=== PATIENT | female | born 1935 | race Caucasian/White ===

== ENCOUNTER 2021-08-10 08:34 | Emergency (ER) | payer MEDICARE, SELFPAY ==
[2021-08-10] VITALS (10 sets, daily range): BP systolic 105–181; BP diastolic 57–96; PULSE 63–85; RESP 18; TEMP 36.6–36.7; O2SAT 96–99; BMI 24.5
--- NOTE | 2021-08-10 08:36 | XR_ITS ---
WS: [id number] Exam: XR chest 1V portable [id number] Date/Time of Exam: 08/10/2021 8:39 AM Reason For Exam: chest pain No priors. The lungs are fully expanded and clear. Normal cardiomediastinal silhouette. No pleural effusions. De xtroscoliosis of the lower T-spine. Bony structures are otherwise intact. XR/XR chest 1V portable [id number] IMPRESSION: 1. No acute cardiopulmonary finding.
--- NOTE | 2021-08-10 08:36 | ECG_ITS ---
[facility] Test Date: 2021-08-10 Pat Name: Laure Bergman Department: Room: Gender: Female Structural Architect: : 1935 Requested By: Elisa Zimmerman Order Number: [id number] Chasity MD: Michael Ray M.D. Measurements Intervals [place] Rate: 80 P: 79 MI: 169 QRS: 44 QRSD: 71 T: 57 QT: 350 QTc: 406 Interpretive Statements SINUS RHYTHM POSSIBLE LEFT ATRIAL ENLARGEMENT [-0.1mV P-WAVE IN V1/V2] POSSIBLE RIGHT VENTRICULAR CONDUCTION DELAY [RSR (QR) IN V1/V2] No previous ECG available for comparison Electronically Signed On 08-10-2021 17:26:36 CDT by Michael Ray M.D. [email or web address] [email or web address] [facility].[employer]/store/OM/[id number]
--- NOTE | 2021-08-10 08:41 | ED_ITS ---
HPI - Chest Pain General: Chief Complaint: Chest Pain Stated Complaint: chest pain/left arm pain Time Seen by Provider: 08/10/21 08:37 Source: patient Mode of arrival: ambulatory Limitations: no limitations History of Present Illness: 85-year-old female states she woke up this morning at 330 with a pressure type pain in her chest. States that it is worse the pain was a 6 out of 10 lasted roughly an hour since has been resolved. She denies any pain currently she denies any diaphoresis denies any nausea or vomiting. No history of heart disease. Associated symptoms: Deny abdominal pain, dyspnea, fever(s), nausea or vomiting Review of Systems Const: Denies: fever(s), chills, body aches or change in appetite Eyes: Denies: blurry vision or eye discomfort ENMT: Denies: throat pain or dental pain Card: Reports: chest pain Resp: Denies: dyspnea GI: Denies: abdominal pain, nausea, vomiting or diarrhea : Denies: dysuria Musc: Denies: neck pain or back pain Skin/Breast: Denies: rash Neuro: Denies: headache(s) Psych: Denies: depression Luis/Lymph: Denies: easy bruising All/Imm: Denies: urticaria PFSH ED PFSH: Medical History (Updated 08/10/21 @ 11:27 by Hanny Gaffney MD) High cholesterol Social History (Updated 08/10/21 @ 08:42 by Hanny Gaffney MD) Smoking and tobacco status: never smoked Substance/Drug Use: never Physical Exam Const: COMMON NORMALS: no acute distress, patient oriented x3 and healthy appearing HENMT: COMMON NORMALS: normocephalic and atraumatic HEAD & SCALP: normocephalic and atraumatic Eye: COMMON NORMALS: Equal, round and reactive pupils present and EOMs intact bilaterally PUPIL: Yes Equal, round and reactive pupils present Neck/C-Spine: COMMON NORMALS: full ROM and supple Chest: COMMONS NORMALS: normal inspection of the chest and normal palpation of entire chest wall Resp: COMMON NORMALS: normal respiratory effort, No retractions, No use of accessory muscles and clear to auscultation bilaterally AUSCULTATION: clear t o auscultation bilaterally Cardio: COMMON NORMALS: regular rate, regular rhythm and No murmurs present (Cardio) RATE: regular rate RHYTHM: regular rhythm GI: COMMON NORMALS: Normal to inspection, nondistended, normoactive bowel sounds present, Soft to palpation, non-tender and no masses PALPATION: Yes Soft to palpation Extremity: COMMON NORMALS: normal to inspection and full ROM Neuro: COMMON NORMALS: patient oriented x3, moves all extremities and no focal motor deficits Psych: COMMON NORMALS: mental status grossly normal, Normal thought process present and cooperative THOUGHT PROCESS: Normal thought process present Skin: COMMON NORMALS: no rashes or lesions noted and no wounds GENERAL SKIN EXAM: no rashes or lesions noted Course Vital Signs: Vital signs: Vital Signs Temperature 97.9 F 08/10/21 08:59 Pulse Rate 63 08/10/21 10:50 Respiratory Rate 18 08/10/21 10:50 Blood Pressure 134/67 08/10/21 10:50 Pulse Oximetry 99 08/10/21 10:50 MDM - Chest Pain Medical Decision Making Patient presents with chest pain is atypical in nature she has been pain-free here her initial and repeat troponins here are normal she has no signs of pulmonary embolism or aortic dissection we will get her follow-up with card iology she is return if worsening she understands agrees to plan. Lab Data : 08/10/21 08:45 08/10/21 08:45 Radiology Impressions Chest X-Ray 08/10/21 08:36 IMPRESSION: 1. No acute cardiopulmonary finding. Laboratory Results WBC 5.7 10^3/uL (4.0-10.0) 08/10/21 08:45 RBC 4.96 10^6/uL (4.1-5.3) 08/10/21 08:45 Hgb 15.4 g/dL (11.5-15.3) H 08/10/21 08:45 Hct 49.5 % (37.0-47.0) H 08/10/21 08:45 MCV 99.8 fl (81-99) H 08/10/21 08:45 MCH 31.0 pg (28.0-34.0) 08/10/21 08:45 MCHC 31.1 g/dL (30.0-36.0) 08/10/21 08:45 RDW 12.5 % (12.1-15.1) 08/10/21 08:45 Plt Count 178 10^3/cmm (130-400) 08/10/21 08:45 MPV 12.0 fL (7.4-10.4) H 08/10/21 08:45 Neut % (Auto) 52.8 % 08/10/21 08:45 Lymph % (Auto) 34.9 % 08/10/21 08:45 [place] % (Auto) 9.1 % 08/10/21 08:45 Eos % (Auto) 2.3 % 08/10/21 08:45 Baso % (Auto) 0.9 % 08/10/21 08:45 Neut # (Auto) 3.03 10^3/uL (1.8-7.7) 08/10/21 08:45 Lymph # (Auto) 2.0 10^3/uL (0.8-4.8) 08/10/21 08:45 [place] # (Auto) 0.5 10^3/uL (0.2-0.9) 08/10/21 08:45 Eos # (Auto) 0.1 10^3/uL (0.0-0.8) 08/10/21 08:45 Baso # (Auto) 0.1 10^3/uL (0.0-0.1) 08/10/21 08:45 Nucleated RBC % (auto) 0 % 08/10/21 08:45 Nucleated RBCs # 0.0 /100WBC 08/10/21 08:45 Sodium 139 mmol/L (136-145) 08/10/21 08:45 Potassium 4.2 mmol/L (3.5-5.1) 08/10/21 08:45 Chloride 101 mmol/L (98-107) 08/10/21 08:45 Carbon Dioxide 26 mmol/L (22-29) 08/10/21 08:45 Anion Gap 16.2 (5-19) 08/10/21 08:45 BUN 12 mg/dL (8-23) 08/10/21 08:45 Creatinine 0.6 mg/dL (0.5-0.9) 08/10/21 08:45 GFR Calculation Not Reportable 08/10/21 08:45 Glucose 94 mg/dL (65-115) 08/10/21 08:45 Calculated Osmolality 288 mOsm/kg (285-295) 08/10/21 08:45 Calcium 8.8 mg/dL (8.5-10.5) 08/10/21 08:45 Total Bilirubin 0.4 mg/dL (0.15-1.2) 08/10/21 08:45 AST 21 U/L (0-32) 08/10/21 08:45 ALT 16 U/L (0-33) 08/10/21 08:45 Alkaline Phosphatase 63 IU/L (35-105) 08/10/21 08:45 Troponin T Baseline 13 ng/L (0-10) H 08/10/21 08:45 Troponin T 120 Minute 9.39 ng/L (0-10) 08/10/21 10:47 Total Protein 7.4 g/dL (6.6-8.7) 08/10/21 08:45 Albumin 4.8 g/dL (3.5-5.2) 08/10/21 08:45 Globulin 2.6 g/dL (1.3-4.6) 08/10/21 08:45 TSH 2.92 uIU/mL (0.27-4.20) 08/10/21 08:45 EKG Data EKG 1: I personally reviewed and interpreted this EKG as follows: EKG interpretation date: 08/10/21 EKG interpretation time: 08:42 Interpretation: nsr hr [address] or t wave abnormalities qrs 71 qtc 386 EKG 2: I personally reviewed and interpreted this EKG as follows: EKG interpretation date: 08/10/21 EKG interpretation time: 10:24 Interpretation: nsr hr [address] or t wave abnormalities qrs 77 qtc 417 Discharge Plan Discharge Patient Disposition: Home Clinical Impression: Chest pain Qualifiers: Chest pain type: unspecified Qualified Code(s): R07.9 - Chest pain, unspecified Prescriptions: No Action multivitamin Tablet 1 tab PO DAILY 0RF Vitamin C 500 mg Tablet 500 mg PO DAILY 0RF levothyroxine 50 mcg Tablet 50 mcg PO QAM 0RF Vitamin D3 25 mcg (1,000 unit) Tablet 25 mcg PO DAILY 0RF Prevagen 1 tab PO DAILY 0RF Vitamin B-12 1 tab PO DAILY 0RF Discharge Orders: Discharge ED (Routine); Ordered 08/10/21 Ordered By: Hanny Gaffney Referrals: Manuelito Phillips MD [Physician] - 1-3 days Discharge Diet: Advance as tolerated Discharge Activity: Resume usual activity Patient Instructions: Chest Pain (ED) Coding Level of Care Code ED Balance Bridge Inspector for Sharathg Fwd Exam Comprehensive
[2021-08-10] MEDS: labetalol 5 mg/mL SDV 20mL 10 MG IVP (08:53)
[2021-08-10] MEDS: aspirin 81 mg Chew Tablet 324 MG PO (08:54)
[2021-08-10 08:55] LABS: Basophils # 0.1 10^3/uL (0.0-0.1); Basophils % 0.9 %; Eosinophils # 0.1 10^3/uL (0.0-0.8); Eosinophils % 2.3 %; Hematocrit 49.5 % (37.0-47.0); Hemoglobin 15.4 g/dL (11.5-15.3); Lymphocytes % 34.9 %; Mean Corpuscular HGB Conc 31.1 g/dL (30.0-36.0); Mean Corpuscular Volume 99.8 fl (81-99); Monocytes # 0.5 10^3/uL (0.2-0.9); Monocytes % 9.1 %; Neutrophils # 3.03 10^3/uL (1.8-7.7); Neutrophils % 52.8 %; Nucleated Red Blood Cells % 0 %; Platelet Count 178 10^3/cmm (130-400); Red Blood Count 4.96 10^6/uL (4.1-5.3); Red Cell Distribution Width 12.5 % (12.1-15.1); White Blood Count 5.7 10^3/uL (4.0-10.0)
[2021-08-10 09:13] LABS: Troponin(5th) Baseline 13 ng/L (0-10)
[2021-08-10 09:37] LABS: Alanine Aminotransferase 16 U/L (0-33); Albumin Level 4.8 g/dL (3.5-5.2); Alkaline Phosphatase 63 IU/L (35-105); Anion Gap 16.2 (5-19); Aspartate Amino Transferase 21 U/L (0-32); Blood Urea Nitrogen 12 mg/dL (8-23); Calcium 8.8 mg/dL (8.5-10.5); Carbon Dioxide 26 mmol/L (22-29); Chloride 101 mmol/L (98-107); Globulin 2.6 g/dL (1.3-4.6); Glucose 94 mg/dL (65-115); Osmolality Calculated 288 mOsm/kg (285-295); Potassium 4.2 mmol/L (3.5-5.1); Sodium 139 mmol/L (136-145); Thyroid Stimulating Hormone 2.92 uIU/mL (0.27-4.20); Total Bilirubin 0.4 mg/dL (0.15-1.2); Total Protein 7.4 g/dL (6.6-8.7)
--- NOTE | 2021-08-10 10:36 | ECG_ITS ---
[facility] Test Date: 2021-08-10 Pat Name: Laure Bergman Department: Room: Gender: Female Legal Researcher: : 1935 Requested By: Elisa Zimmerman Order Number: [id number] Chasity MD: Michael Ray M.D. Measurements Intervals [place] Rate: 66 P: 78 MA: 179 QRS: 35 QRSD: 77 T: 46 QT: 403 QTc: 425 Interpretive Statements SINUS RHYTHM POSSIBLE RIGHT VENTRICULAR CONDUCTION DELAY [RSR (QR) IN V1/V2] Compared to ECG 08/10/2021 08:42:28 No significant changes Electronically Signed On 08-10-2021 17:28:16 CDT by Michael Ray M.D. [id number]
[2021-08-10 12:38] LABS: Troponin 5 2HR 10.72 ng/L (0-10)
[2021-08-10 12:39] LABS: Troponin 5 2HR Delta -2.28 ABS# (0-10)
--- NOTE | 2021-08-13 08:05 | DCPLANNER ---
Addendum entered by Sydney Dennis 10/22/21 11:10: Patient had a follow up appointment scheduled with [facility] - patient did attend appointment. Addendum entered by Sydney Dennis 08/16/21 09:39: Patient has a follow up appointment scheduled for Tuesday, October 12, 2021 at 3:[address] Phillips at [facility]. Clinic will call patient with appointment information. Original Note: assistant brand manager had message to schedule a follow up appointment for patient with cardiology. assistant brand manager sent patients information to the front office staff at [facility]. Patients information will be printed and reviewed. Clinic will call patient with appointment information.
== END 2021-08-10 12:02 | disposition home or self-care (01) ==
PROVIDERS: Physician Assistant; Emergency Provider Emergency Medicine
DX: R07.9 Chest pain, unspecified (principal)
CPT/HCPCS: 71045; 80053; 84443; 84484; 85025; 93005; 96374; 99284; J3490

== ENCOUNTER 2021-10-28 08:28 | Outpatient (CLI) | payer MEDICARE, SELFPAY ==
--- NOTE | 2021-10-28 | ECG_ITS ---
[facility] Test Date: 2021-10-28 Pat Name: Laure Bergman Department: Room: Gender: Female Coating Technician: : 1935 Requested By: Manuelito Phillips Order Number: [id number] Chasity MD: Manuelito Phillips M.D. Interpretive Statements NAME OF STUDY: EXERCISE SESTAMIBI STRESS TEST INDICATION: Chest Pain PROCEDURE: The baseline electrocardiogram showed [normal sinus rhythm with some nonspecific T wave changes. At the baseline, the patient's blood pressure was 146/72 mm Hg with a heart rate of 72. The patient exercised for 5 minutes and 25 seconds on a standard Anthony protocol. Patient attained a maximum heart rate of 143 beats per minute(105% of the maximum predicted heart rate) with a blood pressure at the peak exercise of 177/85 mm Hg. The EKG at the peak exercise revealed no significant changes. Patient did not have any chest pain or any significant arrhythmis with the exercise Sestamibi was injected 1 minute prior to the peak exercise During the recovery phase, there were no new changes. Blood pressure at the end of the recovery phase was 157/70 mm Hg with a heart rate of 84 per minute. CONCLUSION: 1. No significant EKG changes with the treadmill exercise 2. No exercise-induced chest pain or cardiac arrhythmia 3. Impaired exercise tolerance, attained a maximum of 7.0 METs 4. Sestamibi/sestamibi perfusion results perfusion scan report is pending. Please see separate report Electronically Signed On 11-06-2021 15:40:53 CDT by Manuelito Phillips M.D. [email or web address] ([email or web address])/[email or web address]/[id number]
[2021-10-28 09:09] VITALS: BMI 24.8
--- NOTE | 2021-10-28 09:11 | NMCV_ITS ---
NM jose juan perf SPECT r/s* [id number] Laure Bergman Age: 86 Gender: F : 1935 Exam Date: 10/28/2021 10:29 Ordering Phys: Manuelito Phillips MD ([email or web address]) Technologist: DORON Islas Exam Location: [facility] Indications: CORONARY ANGIOPLASTY STATUS STRESS TEST Please see separate stress test report in [facility] for full findings IMAGE PROTOCOL Rest/Stress 1 Exercise Day Radiopharmaceutical Dose (mCi) Administration Site Administered by Rest: Tc-99m 10.9 IV DORON Santana Sestamibi Stress:Tc-99m 32.5 IV DORON Islas Sestamicarlin Rest: 28-Oct-2021 60 Discovery 630 Stress: 28-Oct-2021 15 Discovery 630 Radiopharmaceutical was injected at 100% maximum heart rate. Images obtained in supine and prone position. SPECT RESULTS Technical Quality: Excellent Raw Data Analysis: Normal Image Corrections: No attenuation or motion correction applied Summed Stress Score: 0 Summed Rest Score: 0 Summed Difference Score: 0 PERFUSION FINDINGS Fairly uniform myocardial tracer uptake No significant perfusion abnormalities FUNCTIONAL RESULTS (calculated via Gated SPECT) Stress Image LV EF (%): 79 Stress EDV (mL):47 TID: 0.93 Stress ESV (mL):10 FUNCTIONAL FINDINGS: Segmental wall motion analysis revealing no gross wall motion normalities IMPRESSIONS 1. Unremarkable Myocardial perfusion imaging. 2. Normal LV ejection fraction of 79%. 3. LV wall motion analysis revealing no gross wall motion abnormalities. 4. Normal LV volume. Low probability for coronary ischemia, based on the above findings Dr Manuelito Phillips MD FACC (Electronically Signed) Final Date: 28 October 2021 21:20 S
[2021-10-28 11:20] VITALS: BP 157/70; PULSE 84
== END 2021-10-28 08:29 | disposition home or self-care (01) ==
LOC: CDL 08:32
PROVIDERS: PCP Family Medicine; Visit Provider Internal Medicine Cardiovascular Disease
DX: R07.9 Chest pain, unspecified (principal); Z98.61 Coronary angioplasty status; R06.02 Shortness of breath
CPT/HCPCS: 78452; 93017; A9500

== ENCOUNTER 2021-11-04 07:36 | Outpatient (CLI) | payer MEDICARE, SELFPAY ==
--- NOTE | 2021-11-04 08:00 | USCV_ITS ---
Bhavna Bergmanvonne Age: 86 Gender: F : 1935 Exam Date: 11/04/2021 07:51 Ordering Phys: Manuelito Phillips MD ([email or web address]) Technologist: Virginia Dwyer [place] [facility] [place]: HTN SOB BP: 124 / 72 HR: 70 Rhythm: Sinus Technical Quality: Adequate MEASUREMENTS (Male / Female) Normal Values 2D ECHO LV Diastolic Diameter PLAX 3.4 cm 4.2 - 5.9 / 3.9 - 5.3 cm LV Systolic Diameter PLAX 2.8 cm IVS Diastolic Thickness 1.2 cm 0.6 - 1.0 / 0.6 - 0.9 cm IVS Systolic Thickness 1.1 cm LVPW Diastolic Thickness 1.4 cm 0.6 - 1.0 / 0.6 - 0.9 cm LVPW Systolic Thickness 1.2 cm LVOT Diameter 2.1 cm LV Ejection Fraction 2D Teich 25.4 % LA Diameter 2.9 cm LA Width 2.3 cm LA Height 3.8 cm RA Width 3.1 cm RA Height 3.4 cm Aorta at Sinotubular Diameter 2.5 cm IVC Diameter 1.5 cm M-MODE Aortic Annulus Diameter 2.3 cm LA Ao Ratio MM 1.4 MV E Point Septal Separation 0.6 cm DOPPLER AV Peak Velocity 135.0 cm/s LVOT Peak Velocity 90.0 cm/s AV Area Cont Eq vti 2.3 cm squared AV Area Cont Eq pk 2.2 cm squared MV Area PHT 4.0 cm squared Mitral E to A Ratio 0.8 MV E' Velocity 44.0 cm/s Mitral E to MV E' Ratio 6.8 Mitral E to LV E' Lateral Ratio 7.2 Mitral E to LV E' Septal Ratio 6.5 TR Peak Velocity 355.0 cm/s TR Peak Gradient 50.4 mmHg TR Mean Velocity 214.7 cm/s TR Mean Gradient 20.2 mmHg TR Velocity Time Integral 104.0 cm TV Peak E Velocity 78.0 cm/s Right Atrial Pressure 3.0 mmHg Pulmonary Artery Systolic Pressu 53.4 mmHg PV Peak Velocity 50.0 cm/s RV Acceleration Time 0.1 s RV Ejection Time 0.3 s RV AcT/ET 0.4 FINDINGS Left Ventricle Normal left ventricular size and systolic function, EF 65%.mild left ventricular hypertrophy. No regional wall motion abnormalities. Grade I/IV diastolic dysfunction (abnormal relaxation filling pattern), normal to mildly elevated filling pressures. Right Ventricle The right ventricle is normal in size and function. Right Atrium The right atrium is normal in size. Left Atrium Mildly increased left atrial size. Mitral Valve Mild-moderate mitral valve regurgitation. Aortic Valve Thickened aortic valve. Tricuspid Valve Moderate tricuspid valve regurgitation. Pulmonic Valve Structurally normal pulmonic valve without significant stenosis. There is no pulmonic regurgitation. Estimated pulmonary artery peak systolic pressure was 53 mmHg Pericardium Normal pericardium without effusion. Aorta Normal ascending aorta dimension. IVC The inferior vena cava pulmonary and hepatic veins appear normal. CONCLUSIONS Normal left ventricular size and systolic function, EF 65%.mild left ventricular hypertrophy. No regional wall motion abnormalities. Grade I/IV diastolic dysfunction (abnormal relaxation filling pattern), normal to mildly elevated filling pressures. Mild-moderate mitral valve regurgitation. Mildly increased left atrial size. Thickened aortic valve. Moderate tricuspid valve regurgitation. Moderate pulmonary hypertension with an estimated pulmonary artery peak systolic pressure 53 mmHg There is no pericardial effusion. There are no intracardiac masses. No previous study is available for comparison. Dr Manuelito Phillips MD FACC (Electronically Signed) Final Date: 04 November 2021 20:31 S
== END 2021-11-04 07:37 | disposition home or self-care (01) ==
LOC: RAD 07:36
PROVIDERS: PCP Family Medicine; Visit Provider Internal Medicine Cardiovascular Disease
DX: R06.00 Dyspnea, unspecified (principal); R07.9 Chest pain, unspecified; I10 Essential (primary) hypertension; R06.02 Shortness of breath; I08.3 Combined rheumatic disorders of mitral, aortic and tricuspid valves
CPT/HCPCS: 93306

== ENCOUNTER 2022-02-28 09:10 | Emergency (ER) | payer MEDICARE, SELFPAY ==
--- NOTE | 2022-02-28 09:23 | XRR_ITS ---
PROCEDURE INFORMATION: Exam: XR Chest Exam date and time: 02/28/2022 10:14 AM Age: 86 years old Clinical indication: Shortness of breath; Additional info: SOB TECHNIQUE: Imaging protocol: Radiologic exam of the chest. Views: 1 view. COMPARISON: CR XR chest 1V portable [id number] 08/10/2021 8:49 AM FINDINGS: Lungs: Normal lung volumes. No interstitial or airspace opacities. Left mid lung zone 1 x 0.8 cm calcified granuloma is once again seen. Pleural spaces: No pleural effusion. No pneumothorax. Heart/Mediastinum: Normal heart size. There is a mildly tortuous thoracic aorta. Midline trachea. Bones/joints: No acute abnormalities. Mild leftward scoliosis of the visualized lumbar spine is seen. XR/XR chest 1V portable [id number] IMPRESSION: No chest radiographic evidence of acute cardiopulmonary disease.
--- NOTE | 2022-02-28 09:24 | W.ED.COVID ---
HPI - COVID General: Chief Complaint: COVID symptoms Stated Complaint: covid+ Time Seen by Provider: 02/28/22 09:23 History of Present Illness: cough, NV, SOB, sore throat, LEROY x 1 week, positive COVID test at home 5 days ago COVID 19 common symptoms: positive productive cough, dyspnea and throat pain COVID Results: No Data to Display Review of Systems General: Reports: 10 or more systems reviewed and unremarkable except in HPI and below Narrative: Pt appears stable upon assessment. She is hoarse but able to speak in full sentences. She does have a productive cough. ENMT: Reports: throat pain, odynophagia, hoarseness and ear or mastoid pain Resp: Reports: dyspnea and productive cough PFSH ED PFSH: Medical History High cholesterol Family History Daughter Bleeding disorder Mother CAD (coronary artery disease) 40s Dementia Diabetes Stroke Family/Other Chronic kidney disease (CKD) Lung disease Denies family history of Clotting disorder Suicide Anesthesia complication Cancer Social History Smoking and tobacco status: never smoked Alcohol intake: current Alcohol intake frequency: 0-2 Drinks per Day Alcohol type: wine Physical Exam Const: COMMON NORMALS: no acute distress, patient oriented x3, no limitations and alert GENERAL APPEARANCE: cooperative and comfortable ORIENTATION/CONSCIOUSNESS: Yes awake, Yes oriented to person, Yes oriented to place and Yes oriented to time HENMT: COMMON NORMALS: normocephalic, atraumatic, external ears normal, EAC's normal and Normal external nose present HEAD & SCALP: normal to inspection, normocephalic and atraumatic FACE & SINUS: normal facial exam, sinuses nontender and face symmetric NOSE: Normal external nose present, Normal nares present and No nasal discharge present EXTERNAL EAR: Yes external ears normal EXTERNAL AUDITORY CANAL: EAC's normal MOUTH: Normal oral and palatal mucosa present, lip normal and tongue normal Eye: COMMON NORMALS: Equal, round and reactive pupils present, EOMs intact bilaterally and conjunctivae normal GENERAL EYE: appearance normal, both eyes and all related structures and normal light reflex EYELID: eyelids normal CONJUNCTIVA: Yes conjunctivae normal PUPIL: Yes Equal, round and reactive pupils present EOM: Yes EOM abnormal DIRECT OPHTHALMOSCOPY: Yes normal light reflex Neck/C-Spine: COMMON NORMALS: full ROM, no lymphadenopathy, supple, no meningeal signs, no JVD and Thyroid normal GENERAL: Yes normal visual inspection THYROID: Thyroid normal CERVICAL SPINE: Yes cervical ROM normal and Yes normal cervical lordosis Lymph: LYMPHATIC: no lymphadenopathy noted Chest: COMMONS NORMALS: normal inspection of the chest and normal palpation of entire chest wall Resp: EFFORT & INSPECTION: Yes able to speak in complete sentences, Yes symmetric chest movement and Yes Actively coughing productive, moist and strong Cardio: COMMON NORMALS: no JVD, regular rate, regular rhythm, S1 normal heart sound present, S2 normal heart sound present, No gallops present (Cardio), No clicks present (Cardio), No murmurs present (Cardio), No rub (Cardio) and Peripheral pulses 2+ throughout RATE: regular rate RHYTHM: regular rhythm HEART SOUNDS: S1 normal heart sound present and S2 normal heart sound present PERIPHERAL PULSES: Peripheral pulses 2+ throughout GI: COMMON NORMALS: Normal to inspection, nondistended, normoactive bowel sounds present, Soft to palpation, non-tender and no masses PALPATION: Yes Soft to palpation : COMMON NORMALS: Yes no CVA tenderness and Yes normal external appearance BLADDER/KIDNEY EXAM: Yes no CVA tenderness Back/Pelvis: COMMON NORMALS: no CVA tenderness, thoracic and lumbar spine normal to inspection, no thoracic nor lumbar tenderness and thoraco-lumbar ROM normal Extremity: COMMON NORMALS: normal to inspection, full ROM, capillary refill normal, no joint enlargement, no clubbing, cyanosis or edema, no calf tenderness and no pedal edema GENERAL: Yes normal exam except as noted Neuro: COMMON NORMALS: patient oriented x3, moves all extremities, no focal motor deficits, no sensory deficits noted and gait normal SENSORIUM/ORIENTATION: Yes alert, Yes oriented to person, Yes oriented to place and Yes oriented to time MENINGEAL SIGNS: Yes no meningeal signs Psych: COMMON NORMALS: mental status grossly normal, Normal thought process present, cooperative, normal affect, speech normal and activity/motor behavior normal SPEECH: Yes normal speech THOUGHT PROCESS: Normal thought process present Skin: COMMON NORMALS: no rashes or lesions noted, no wounds and turgor normal GENERAL SKIN EXAM: no rashes or lesions noted and turgor normal Course Reevaluation(s): Reevaluation #1: Pt presents to ER with complaints of worsening in symptoms. Ill since Tuesday, positive covid19 at home test when she had a sore throat and severe LEROY. She is now experiencing labored breathing and hoarseness of voice. Sats remain between 95 - 98% on RA. She is afebrile but has NV, unable to sleep, and cough is persistent and productive. Vital Signs: Vital signs: Vital Signs Temperature 97.9 F 02/28/22 09:26 Pulse Rate 76 02/28/22 10:41 Respiratory Rate 16 02/28/22 10:41 Blood Pressure 127/72 02/28/22 10:41 Pulse Oximetry 97 02/28/22 10:41 Oxygen Delivery Me thod 02/28/22 10:31 MDM - COVID Medical Decision Making CXR is clear per radiology report. Will treat for secondary bronchitis post covid 19 complication. Will DC and have pt follow up with PCP or ER as needed. Lab Data Radiology Impressions Chest X-Ray 02/28/22 09:23 IMPRESSION: No chest radiographic evidence of acute cardiopulmonary disease. No Data to Display Discharge Plan Discharge Patient Disposition: Home Clinical Impression: Bronchitis, COVID-19 Condition: Stable Prescriptions: New Zithromax 500 mg tablet See Rx Instructions .ROUTE .COMPLEX Qty: 3 0RF Rx Instructions: For 250 mg dose pack: take 500 mg today (day 1), then 250 mg for 4 days (days 2-5) Medrol (Mirza) 4 mg tablets,dose pack See Rx Instructions .ROUTE .COMPLEX Qty: 21 0RF Rx Instructions: orally per package directions Mucinex Fast-Max Chest-Congest 100 mg/5 mL liquid 200 mg PO Q6H PRN (Reason: cough) Qty: 473 0RF promethazine 12.5 mg tablet 12.5 mg PO Q6H PRN (Reason: nausea and vomiting) Qty: 10 0RF Rx Instructions: 3 doses during day; last dose no later than 4 hr before bedtime No Action folic acid 400 mcg tablet 0.4 mg PO DAILY lysine 1,000 mg tablet 1,000 mg PO DAILY ashwagandha root extract 500 mg capsule 920 mg PO DAILY chromium picolinate 200 mcg tablet 200 mcg PO DAILY elderberry fruit and flower 460-115 mg capsule 1 cap PO DAILY calcium-vitamin D3-vitamin K 500-100-40 mg-unit-mcg tablet,chewable 1 tab PO DAILY multivitamin Tablet 1 tab PO DAILY Vitamin C 500 mg Tablet 500 mg PO DAILY levothyroxine 50 mcg Tablet 50 mcg PO QAM Vitamin D3 25 mcg (1,000 unit) Tablet 25 mcg PO DAILY Prevagen 1 tab PO DAILY Vitamin B-12 1 tab PO DAILY Discharge Orders: Discharge ED (Routine); Ordered 02/28/22 Ordered By: Kimberly Castillo Referrals: Shayne Ybarra MD [Primary Care Provider] - Discharge Diet: Usual diet Discharge Activity: Increase activity as tolerated Patient Instructions: Opioid Safety, Pain Management Activity Restrictions/Additional Instructions: If you wish to contact [employer] you can be seen via telehealth as well for alternative medication therapies. This will include vitamins and supplements as well as pharmaceuticals not approved by the FDA for covid19 treatment adhering to the [facility] Protocols. You can review these protocols on [email or web address] Mullein leaf tea will also help with your symptoms as far as protecting the upper airways. Other suggestions for supplemental support are NAC, quercetin, and zinc. Dosages are listed on the website mentioned above. Coding Level of Care Code ED [employer] for Rakan Jimenez
[2022-02-28 09:26] VITALS: BP 146/73; PULSE 88; RESP 18; TEMP 36.6; O2SAT 95; BMI 23.2
[2022-02-28 10:41] VITALS: BP 127/72; PULSE 76; RESP 16; O2SAT 97
== END 2022-02-28 10:42 | disposition home or self-care (01) ==
PROVIDERS: Emergency Provider Nurse Practitioner Family; PCP Family Medicine
DX: U07.1 COVID-19 (principal); J40 Bronchitis, not specified as acute or chronic
CPT/HCPCS: 71045; 99283

== ENCOUNTER 2022-10-12 07:24 | Outpatient (RCR) | payer MEDICARE, SELFPAY | END 2022-10-18 23:59 | disposition home or self-care (01) | LOC: SPT 07:24 | PROVIDERS: PCP Family Medicine; Visit Provider Family Medicine | DX: N39.41 Urge incontinence (principal); R39.15 Urgency of urination | CPT/HCPCS: 97161 ==

== ENCOUNTER 2022-10-19 06:00 | Outpatient (RCR) | payer MEDICARE, SELFPAY | END 2022-11-10 23:59 | disposition home or self-care (01) | LOC: SPT 06:00 | PROVIDERS: PCP Family Medicine; Visit Provider Family Medicine | DX: N39.41 Urge incontinence (principal); R39.15 Urgency of urination | CPT/HCPCS: 97110; 97530 ==

== ENCOUNTER → 2023-05-24 14:16 | Outpatient (BNVA) | payer MEDICARE, SELFPAY | PROVIDERS: PCP Family Medicine; Visit Provider Podiatrist Foot & Ankle Surgery | DX: M21.612 Bunion of left foot; M20.41 Other hammer toe(s) (acquired), right foot; M20.42 Other hammer toe(s) (acquired), left foot | CPT/HCPCS: 73630; 99203 ==

== ENCOUNTER → 2023-08-23 13:17 | Outpatient (BNVA) | payer MEDICARE, SELFPAY | PROVIDERS: PCP Family Medicine; Visit Provider Podiatrist Foot & Ankle Surgery | DX: M21.612 Bunion of left foot (principal); M20.41 Other hammer toe(s) (acquired), right foot; M20.42 Other hammer toe(s) (acquired), left foot | CPT/HCPCS: 99213 ==

== ENCOUNTER 2023-12-14 13:44 | Outpatient (CLI) | payer MEDICARE, SELFPAY ==
--- NOTE | 2023-12-14 13:46 | XR_ITS ---
WS: [id number] DEXA (DUAL ENERGY X-RAY ABSORPTIOMETRY) Bone mineral density was performed using a [employer] machine. HISTORY: POST MENOPAUSAL COMPARISON: None available. Lumbar spine BMD (L1-L4): 0.988 g/cm2 T score: -1.6 Z score: 0.5 Total hip BMD: Left: 0.791 g/cm2. T score: -1.7 Z score: 0.7 Right: 0.900 g/cm2. T score: -0.9 Z score: 1.6 10 year probability of a major osteoporotic fracture is 28.5%. Mild LEFT curvature lumbar spine. XR/XR DEXA axial skeleton* 21303 IMPRESSION: OSTEOPENIA based upon the WHO classification for females.
== END 2023-12-14 13:45 | disposition home or self-care (01) ==
LOC: RAD 13:44
PROVIDERS: PCP Family Medicine; Visit Provider Physician Assistant
DX: Z13.820 Encounter for screening for osteoporosis (principal); Z78.0 Asymptomatic menopausal state; M85.80 Other specified disorders of bone density and structure, unspecified site
CPT/HCPCS: 77080

== ENCOUNTER → 2024-03-07 14:44 | Outpatient (BNVA) | payer MEDICARE, SELFPAY | PROVIDERS: PCP Family Medicine; Visit Provider Podiatrist Foot & Ankle Surgery | DX: M79.671 Pain in right foot (principal); M77.8 Other enthesopathies, not elsewhere classified | CPT/HCPCS: 73630; 99213 ==

== ENCOUNTER 2024-04-21 06:30 | Outpatient (RCR) | payer MEDICARE, BC, SELFPAY | END 2024-05-18 23:59 | disposition home or self-care (01) | LOC: SPT 06:30 | PROVIDERS: PCP Family Medicine; Visit Provider Family Medicine | DX: R32 Unspecified urinary incontinence (principal) | CPT/HCPCS: 97161 ==

== ENCOUNTER → 2024-05-07 08:28 | Outpatient (BNVA) | payer MEDICARE, BC, SELFPAY | PROVIDERS: PCP Family Medicine; Visit Provider Podiatrist Foot & Ankle Surgery | DX: M79.671 Pain in right foot (principal); M77.8 Other enthesopathies, not elsewhere classified | CPT/HCPCS: 99213 ==

== ENCOUNTER 2024-05-19 06:00 | Outpatient (RCR) | payer MEDICARE, SELFPAY | END 2024-06-18 23:59 | disposition home or self-care (01) | LOC: SPT 06:00 | PROVIDERS: PCP Family Medicine; Visit Provider Family Medicine | DX: R32 Unspecified urinary incontinence (principal) | CPT/HCPCS: 97110; 97530 ==

== ENCOUNTER 2024-06-20 08:24 | Outpatient (RCR) | payer MEDICARE, SELFPAY | END 2024-07-18 23:59 | disposition home or self-care (01) | LOC: SPT 08:24 | PROVIDERS: Visit Provider Family Medicine | DX: R32 Unspecified urinary incontinence (principal) | CPT/HCPCS: 97110 ==

== ENCOUNTER 2024-10-02 07:52 | Outpatient (CLI) | payer MEDICARE, BC, SELFPAY ==
[2024-10-02 08:22] VITALS: PULSE 79; RESP 18; O2SAT 95
== END 2024-10-02 07:53 | disposition home or self-care (01) ==
LOC: RT 07:55
PROVIDERS: PCP Family Medicine; Visit Provider Family Medicine
DX: J45.909 Unspecified asthma, uncomplicated (principal); J98.8 Other specified respiratory disorders; R94.2 Abnormal results of pulmonary function studies
CPT/HCPCS: 94060; 94726; 94729; J7613

== ENCOUNTER 2025-01-26 19:55 | Emergency (ER) | payer MEDICARE, BC, SELFPAY ==
--- OUTSIDE RECORDS SUMMARY | 2018-03-13 02:00 | XMS_ITS | Continuity of Care Document ---
Author Organization [facility] Address [address] [place] [address] Phone Care Team Providers Care Quill Machine Operator Name Role Phone Unavailable Unavailable Unavailable Allergies, Adverse Reactions, Alerts Substance Reaction Status Criticality NSAIDS (Non-Steroidal Anti-Inflammatory Drug) Active No Information Medications Medication Instructions Dosage Effective Dates (start - stop) Status Comments levothyroxine 50 mcg tablet take 1 tablet by oral route every day 50 MCG - Active oseltamivir 75 mg capsule take 1 capsule by oral route 2 times every day 75 MG - No Longer Active Procedures Procedure Date Flu Rapid Immunoas; Flu Rapid Immunoas; Offic/outpt E&m [facility] 8 Service(s) provided in the office during regularly Advance Directives Directive Yes / No Effective Date File Name No Information Encounters Encounter Description Practice Location Reason(s) For Visit Diagnoses Date Provider Providers Copied on Encounter [facility], [address], [place], [place], [id number] , tel:[phone] [facility] No Information 8 No Information Offic/outpt E&m [facility], [address], [place], [place], [id number] , tel: [phone] [facility] cold symptoms (chief complaint) Exposure to influenzaContact w and exposure to oth viral communicable diseasesInfluenza BInfluenza B 8 No Information Family History Family Member Type Diagnosis Age At Onset No Information Payers Payer name Insurance type Covered republican ID Authoriza tion(s) [facility] [id number] Social History Type Description Quantity Date Captured Comments Sex Female Smoking Status No Information Chief Complaint And Reason For Visit No Information Reason For Referral Reason For Referral No Information History Of Present Illness Encounter Date Complaint History Of Prese nt Illness No Information Functional Status Date Functional Assessmen t No Information Instructions Date Instruction Additional Infor mation No Information Assessments Type Assessment Date No Information Patient Care Teams Name Effective Dates (start - stop) Status Members No Information
[2025-01-26 20:00] VITALS: BP 137/78; PULSE 80; RESP 16; TEMP 36.4; O2SAT 94; BMI 24.3
--- OUTSIDE RECORDS SUMMARY | 2025-01-26 20:03 | XMS_ITS | Patient Health Record ---
Author Organization [employer] [facility] Address [address] [place], [place] [id number] Care Team Providers Care Locket Maker Name Role Phone Ang New Primary Care Provider Allergies Allergen (clinical drug ingredient) Drug/Non Drug Allergy documented on EMR Reaction Allergy Type Onset Date Status diphenhydramine Benadryl numbed whole body Drug Allergy Active Aleve (uncoded) Itching, body swelling, throat closing Allergy Active Reason For Referral No Information Medications Medication SIG (Take, Route, Frequency, Duration) Notes Start Date End Date Status Levothyroxine Sodium 50 MCG TAKE 1 TABLET BY MOUTH IN THE MORNING ONCE DAILY ON AN EMPTY STOMACH for 100 Active LORazepam 0.5 MG 1/2 tablet Orally q1 2 prn for 10 days 12/18/2020 Active Lyrica 75 MG 1 capsule Orally Onc e a day for 30 days 06/03/2020 Not-Taking Zithromax Z-Mirza 250 MG 2 tablet on the irst day, then 1 tablet daily for 4 days Orally Once a day for 5 day(s) 02/17/2021 Active Bactrim DS 800-160 MG 1 tablet Orally Tw ice a day for 7 days 10/15/2020 Not-Taking Acetaminophen 500 MG 2 tablet as needed Orally every 12 hrs for 30 days 01/22/2020 Not-Taking Immunizations Vaccine Route Administration Date Status Comme nts INJ-Pneumo(Z23) Unknown 02/19/2005 Administered INJ-MCR Flu High Dose(Z23) IM Intramuscular 04/05/2018 Adm inistered SRB-Yykm-Sumpe(Z23)Adacel Unknown 12/01/2016 Administer ed INJ-MCR Flu High Dose(Z23) IM Intramuscular 12/08/2018 Adm inistered INJ-MCR Flu High Dose(Z23) Unknown 12/13/2019 Administe red COVID 19 - MODERNA Unknown 07/18/2020 Administered COVID 19 - MODERNA Unknown 08/15/2020 Administered Social History Tobacco Use: Social History Observation Description Date Details (start date - stop date) Never Smoker NA - NA Tobacco Use/Smoking Question Answer Notes Are you a nonsmoker Alcohol Screen Question Answer Notes Did you have a drink contain ing alcohol in the past year? Yes How often did you have a dri nk containing alcohol in the past year? 4 or more times a week (4 points) How many drinks did you have on a typical day when you were drinking in the past year? 1 or 2 drinks (0 point) How often did you have 6 or more drinks on one occasion in the past year? 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 confirmed Problem Hypothyroidism (62804540) Hypothyroidism, unspecified (E03.9) Active confirmed Problem Vitamin D deficiency (85845468) Vitamin D deficiency, unspecified (E55.9) Active confirmed Problem Hyperlipidemia (93593595) Hyperlipidemia, unspecified (E78.5) Active confirmed Problem Mild major depression, single episode (76071281) Major depressive disorder, single episode, mild (F32.0) Active confirmed Problem Major depression, single episode, in complete remission (90219312) Major depressive disorder, single episode, in full remission (F32.5) Active confirmed Problem Major depression, single episode (51893636) Major depressive disorder, single episode, unspecified (F32.9) Active confirmed Problem Mild recurrent major depression (66584395) Major depressive disorder, recurrent, mild (F33.0) Active confirmed Problem Anxiety disorder (977749582) Anxiety disorder, unspecified (F41.9) Active confirmed Problem Chronic migraine without aura, non-refractory (disorder) (675320562319433 ) Migraine without aura, not intractable, without status migrainosus (G43.009) Active confirmed Problem Polyneuropathy (71112091) Polyneuropathy in diseases classified elsewhere (G63) Active confirmed Problem Benign paroxysmal positional vertigo (393609091) Benign paroxysmal vertigo, right ear (H81.11) Active confirmed Problem Essential hypertension (53768092) Essential (primary) hypertension (I10) Active confirmed Problem Peripheral vascular disease (980816875) Peripheral vascular disease, unspecified (I73.9) Active confirmed Problem Varicose veins of bilateral lower limbs (995324323051174 06) 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) Active confirmed Problem Peripheral venous insufficiency (79673808) Venous insufficiency (chronic) (peripheral) (I87.2) Active confirmed Problem Allergic rhinitis (30190367) Allergic rhinitis, unspecified (J30.9) Active confirmed Problem Pulmonary fibrosis (88518294) Pulmonary fibrosis, unspecified (J84.10) Active confirmed Problem Gastro-esophagea l reflux disease without esophagitis (654679618) Gastro-esophageal reflux disease without esophagitis (K21.9) Active confirmed Problem Diverticular disease of colon (532338146) Diverticulosis of large intestine without perforation or abscess without bleeding (K57.30) Active confirmed Problem Degeneration of cervical intervertebral disc (16168335) Other cervical disc degeneration, unspecified cervical region (M50.30) Active confirmed Problem 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, lumbar region (M51.36) Active confirmed Problem Disorder of bone (99359260) Other specified disorders of bone density and structure, unspecified site (M85.80) Active confirmed Plan Of Treatment Pending Test Test Name Order Date DEXA Hip and Spine 04/30/2011 MAMMOGRAM, SCREENING 04/30/2011 OLAB-Chemstick 05/16/2013 INJ-Therapeutic Inj-IM 04/20/2017 MED-B12 04/20/2017 OLAB-Rapid Strep 06/12/2019 OLAB-Rapid Strep 06/14/2013 OLAB-UA Non-Auto 07/31/2013 OLAB-UA Non-Auto 09/30/2017 OLAB-UA Non-Auto 12/26/2014 OLAB-UA Non-Auto 11/12/2016 OLAB-UA Non-Auto 08/06/2015 PRO-EKG 05/16/2013 PRO-EKG 05/28/2019 PRO-EKG 04/08/2016 PRO-EKG 07/07/2018 COMPREHENSIVE METABOLIC PNL W/eGFR 05/16 Urinalysis w/rflx to Culture([facility]) 04/22 Urinalysis w/rflx to Culture([facility]) 03/21 VITAMIN D, 25-HYDROXY, TOTAL 12/08/2018 US PELVIC WITH TRANSVAGINAL 03/30/2011 MMR Immunity 12/08/2018 Lipid Panel with Reflex to LDL Direct Lipid Panel with Reflex to LDL Direct CMP14+eGFR 12/08/2018 TSH Rfx on Abnormal to Free T4 9 URINALYSIS W/RFLX TO CULTURE 02/20/2019 URINALYSIS W/RFLX TO CULTURE 12/08/2018 UA with Culture Reflex 10/15/2020 CBC With Differential/Platelet 9 Hemoglobin A1c 12/08/2018 Microalb/Creat Ratio, Randm Ur 9 Occult Blood, Fecal, IA 12/08/2018 TSH W/RFLX FREE T3 AND FREE T4 4 CBC W/DIFF, W/PLT 05/16/2013 CHEST CXR PA AND LATERAL 09/02/2014 CHEST CXR PA AND LATERAL 04/05/2018 CHEST CXR PA AND LATERAL 03/28/2019 DEXA BONE DENSITY AXIAL SKELETON 019 DEXA BONE DENSITY AXIAL SKELETON 017 LUMBAR SPINE COMPLETE 5V 12/08/2018 MRI ABDOMEN 09/16/2014 MRI LUMBAR SPINE 02/12/2019 KNEES BILATERAL COMPLETE W/ AP STANDING XR 11/01/2016 LUMBAR SPINE 2 OR 3 VIEWS XR 07/07/2018 TSH+T4F+T3Free 09/28/2018 THORACIC SPINE 2 VIEWS 07/07/2018 CHEST PA AND LATERAL 2 VIEW 05/28/2019 THORACIC SPINE 3 VIEW 01/22/2020 Medical (General) History Medical History History ICD Code colonoscopy 02/26 mammo 10/06 DEXA 03/01 -2.0, 11/04, T score -2.2, FRA X 4.916 CTA calcium score 0, 06/27 Tubular cystic lesion R adenexa 11/28 mild PAD LE-doppler 06/01 right hydrosalpinx, right kidney abnorma lity Surgical History Surgery Date(Month/Year) tonsillectomy hysterectomy unilateral salpingo-oophore ctomy D&C 1957 L4-L5 laminectomy 09/2019
--- OUTSIDE RECORDS SUMMARY | 2025-01-26 20:03 | XMS_ITS | Data Portability ---
Author Organization MIGUEL Munguia [facility], [place], [facility] Address [address] [address] Care Team Providers Care Regional Business Manager Name Role Phone UBALDO ANA M Primary Care Provider HITESH Bella Physical Therapist GOODMAN LULA Criminal Investigator [facility] Health Professional apist Assessment Encounter Date Assessment Date Assessment LastModified by Organization Details LastModified Time 05/21/2024 05/21/2024 something going on with her phone...not getting messages. someone coming wed to help with voicemail. [email or web address] Not available 05/21/2024 11:03:16 Plan of Treatment Reminders Order Date Submit Date Provider Last Modified By Organization Details Last Modified Time Details Appointments None recorded. Lab culture, urine 2024 025 [email or web address] 40 [facility], [address] [place] [address], [facility] [address] [place], [address], 5 08:22:18 urinalysis, dipstick 2024 025 [email or web address] [facility] ([facility]), [address] [place], [address], 5 15:42:40 CBC 2024 025 [facility], [address] [place] [address], [address], 5 17:43:23 urinalysis, complete 2024 025 [facility], [address] [facility], [facility] 1, [place], [address], 5 17:46:57 thyrotropin , QN, serum or plasma 2024 025 [facility], [address] [facility], [facility] 1, [place], [address], 5 18:01:24 Referral pain management referral 2024 025 [place] [address] Ovidio Bhatt , [address] [place], [address], 5 15:10:23 orthopedic spine surgeon referral 2024 [facility]25 [facility] [address] [place] [address], [facility] [address], [place], [address], 5 11:56:35 Pelvic Health and Continence Program Referral [address] Physical Therapy, [address] [facility], [address], [place], [address], 5 14:48:59 Procedures pulmonary function test procedure (PROC) 2024 [facility] [address] [place], [address], 5 08:35:58 Surgeries None recorded. Imaging MRI, lumbar spine, w/wo contrast - needs open MRI, do together with sacral MRI 2024 025 [facility], [address] [facility], [place], [address], 13:31:34 MRI, sacral plexus, w/wo contrast - needs OPEN MRI and do together with Lumbar. 2024 025 asurface [facility], [address], [place], [address], 15:30:27 Medication Orders lidocaine 4 % topical patch 2024 025 KISHAN [id number], [address] [facility], [facility] 2, [place], [address], 17:59:25 betamethaso ne acetate and sodium phos 6 mg/mL suspension for injection 2024 025 [email or web address] [id number], [address], [facility] 2, [place], [address], 10:45:31 Patient TargetsNo targets recorded. Patient InstructionsNo instructions recorded. Reason for Referral Pelvic Health And Continence Program Referral for Urinary incontinence Referring Physician: Ana M [facility], Encounter Date: 04/18/2024 Orthopedic Spine Surgeon Ref erral for Left side sciatica left sciatic not responding to PT, had right back surgery in 2019 Referring Physician: Ana M Garza [facility], Encounter Date: 04/18/2024 Pain Management Referral for Chronic low back pain Referring Physician: Ana M [facility]za [facility], Encounter Date: 08/27/2024 Results Created Date Observation Date Name Description Value Unit Range Abnormal Flag Note LastModifiedBy Organization Detail LastModifiedTime 05/02/1905/02/2024 BMP (FEMA LE) glucose 108.0 mg/dL 60.0-9 9.0 high Not Available [facility] [address] [facility] [address], [place], [address], 05/02/2024 17:11:08 05/02/19 25 05/02/2024 BMP (FEMA LE) BUN (blood urea nitrogen) 15.0 mg/dL 10.0-2 6.0 Not Available [facility] [address] [facility] 1, [place], [address], 05/02/2024 17:11:08 05/02/19 25 05/02/2024 BMP (FEMA LE) creatinine (serum) 0.6 mg/dL 0.4-1. 5 Not Available [facility] [address] [facility] [address] [facility] 1, [place], [address], 05/02/2024 17:11:08 05/02/19 25 05/02/2024 BMP (FEMA LE) BUN/creatini ne ratio 25.00 ratio Not Available [facility] [address] [facility] [address] [facility] 1, [place], [address], 05/02/2024 17:11:08 05/02/19 25 05/02/2024 BMP (FEMA LE) calcium 9.5 mg/dL 8.4-10 .5 Not Available [facility] [address] [facility] [address] [facility] 1, [place], [address], 05/02/2024 17:11:08 05/02/19 25 05/02/2024 BMP (FEMA LE) sodium 139.0 mmol/ L 136.0- 145.0 Not Available [facility] [address] [facility] [address] 1, [place], [address], 05/02/2024 17:11:08 05/02/19 25 05/02/2024 BMP (FEMA LE) potassium 4.2 mmol/ L 3.5-5. 1 Not Available [facility] [address] [facility] [address] 1, [place], [address], 05/02/2024 17:11:08 05/02/19 25 05/02/2024 BMP (FEMA LE) chloride 99.0 mmol/ L 98.0-1 10.0 normal Not Available [facility] [address] [facility] [address] 1, [place], [address], 05/02/2024 17:11:08 05/02/19 25 05/02/2024 BMP (FEMA LE) C02 32.0 mmol/ L 22.0-3 1.0 high Not Available [facility] [address] [facility] 1, [place], [address], 05/02/2024 17:11:08 05/02/19 25 05/02/2024 BMP (FEMA LE) anion gap 8.0 calc Not Available [facility] [address] [facility] 1, [place], [address], 05/02/2024 17:11:08 06/06/19 25 06/05/2024 CBC WBC 5.2 x10 4.0-10 .5 Not Available [facility] [address] [facility] [address] 1, [place], [address], 06/05/2024 17:43:23 06/06/19 25 06/05/2024 CBC RBC 4.48 x10 3.50-5 .50 Not Available [facility] [address] [facility] 1, [place], [address], 06/05/2024 17:43:23 06/06/19 25 06/05/2024 CBC HGB 14.1 g/dL 12.0-1 6.0 Not Available [facility] [address] [facility] 1, [place], [address], 06/05/2024 17:43:23 06/06/19 25 06/05/2024 CBC HCT 44.2 % 37.0-4 7.0 Not Available [facility] [address] [facility] 1, [place], [address], 06/05/2024 17:43:23 06/06/19 25 06/05/2024 CBC MCV 98.7 fL 80.0-9 9.9 Not Available [facility] [address] [facility] 1, [place], [address], 06/05/2024 17:43:23 06/06/19 25 06/05/2024 CBC MCH 31.5 pg 27.0-3 2.0 Not Available [facility] [address] [facility] 1, [place], [address], 06/05/2024 17:43:23 06/06/19 25 06/05/2024 CBC MCHC 31.9 g/dL 32.0-3 6.0 low Not Available [facility] [address] [facility] 1, [place], [address], 06/05/2024 17:43:23 06/06/19 25 06/05/2024 CBC RDW 13.1 % 11.5-1 4.5 Not Available [facility] [address] [facility] 1, [place], [address], 06/05/2024 17:43:23 06/06/19 25 06/05/2024 CBC plt 161.4 x10 140.0- 451.0 Not Available [facility] [address] [facility] 1, [place], [address], 06/05/2024 17:43:23 06/06/19 25 06/05/2024 CBC lymphocytes % 32.7 % 20.0-5 0.0 Not Available [facility] [address] [facility] 1, [place], [address], 06/05/2024 17:43:23 06/06/19 25 06/05/2024 CBC granulcytes % 54.8 % 30.0-7 0.0 Not Available [facility] [address] [facility] 1, [place], [address], 06/05/2024 17:43:23 06/06/19 25 06/05/2024 CBC monocytes % 8.7 % 2.0-16 .0 Not Available [facility] [address] [facility], [place], [address], 06/05/2024 17:43:23 06/06/19 25 06/05/2024 CBC granulcytes# 2.9 x10 Not Sharla ilable [facility] [address] [facility] [address], [place], [address], 06/05/2024 17:43:23 06/06/19 25 06/05/2024 CBC lymphocytes # 1.7 x10 Not Available [facility] [address] [facility] 1, [place], [address], 06/05/2024 17:43:23 06/06/19 25 06/05/2024 CBC monocytes # 0.5 x10 Not Avai lable [facility] [address] [facility] 1, [place], [address], 06/05/2024 17:43:23 06/06/19 25 06/05/2024 URINA LYSIS WITH MICRO color YELLOW Not Available [facility] [address] [facility] 1, [place], [address], 06/05/2024 17:46:57 06/06/19 25 06/05/2024 URINA LYSIS WITH MICRO clarity CLEAR Not Available [facility] [address] [facility] 1, [place], [address], 06/05/2024 17:46:57 06/06/19 25 06/05/2024 URINA LYSIS WITH MICRO glu NEGATI VE Not Available [facility] [address] [facility] 1, [place], [address], 06/05/2024 17:46:57 06/06/19 25 06/05/2024 URINA LYSIS WITH MICRO bili NEGATI VE Not Available [facility] [address], [place], [address], 06/05/2024 17:46:57 06/06/19 25 06/05/2024 URINA LYSIS WITH MICRO ket NEGATI VE Not Available [facility] [address], [place], [address], 06/05/2024 17:46:57 06/06/19 25 06/05/2024 URINA LYSIS WITH MICRO S.g 1.030 1.005- 1.025 high Not Available [facility] [address], [place], [address], 06/05/2024 17:46:57 06/06/19 25 06/05/2024 URINA LYSIS WITH MICRO pH 5.5 5.0-7. 0 Not Available [facility] [address], [place], [address], 06/05/2024 17:46:57 06/06/19 25 06/05/2024 URINA LYSIS WITH MICRO pro NEGATI VE Not Available [facility] [address], [place], [address], 06/05/2024 17:46:57 06/06/19 25 06/05/2024 URINA LYSIS WITH MICRO uro 0.2 E.U./D L Not Available [facility] [address], [place], [address], 06/05/2024 17:46:57 06/06/19 25 06/05/2024 URINA LYSIS WITH MICRO nit NEGATI VE Not Available [facility] [address], [place], [address], 06/05/2024 17:46:57 06/06/19 25 06/05/2024 URINA LYSIS WITH MICRO blo NEGATI VE Not Available [facility] [address] [facility] [address], [place], [address], 06/05/2024 17:46:57 06/06/19 25 06/05/2024 URINA LYSIS WITH MICRO marcelina NEGATI VE Not Available [facility] [address] [facility] 1, [place], [address], 06/05/2024 17:46:57 06/06/19 25 06/05/2024 URINA LYSIS WITH MICRO WBC 3-4 Not Available [facility] [address] [facility] 1, [place], [address], 06/05/2024 17:46:57 06/06/19 25 06/05/2024 URINA LYSIS WITH MICRO RBC 0 Not Available [facility] [address] [facility] 1, [place], [address], 06/05/2024 17:46:57 06/06/19 25 06/05/2024 URINA LYSIS WITH MICRO epi cells 6-8 Not Available [facility] [address] [facility] 1, [place], [address], 06/05/2024 17:46:57 06/06/19 25 06/05/2024 URINA LYSIS WITH MICRO bacteria NEGATI VE Not Available [facility] [address] [facility] 1, [place], [address], 06/05/2024 17:46:57 06/06/19 25 06/05/2024 URINA LYSIS WITH MICRO other NEGATI VE Not Available [facility] [address] [facility] 1, [place], [address], 06/05/2024 17:46:57 06/06/19 25 06/05/2024 TSH TSH 1.49 uIU/m L 0.49-3 .82 Not Available [facility] [address], [place], [address], 06/05/2024 18:01:24 10/17/1910/16/2024 urina lysis , dipst ick Leukocytes Negati ve Not Available [facility] ([facility]) [address] [place], [address], 10/16/2024 15:11:45 10/17/19 25 10/16/2024 urina lysis , dipst ick Nitrite negati ve Not Available [facility] ([facility]) [address] [place], [address], 10/16/2024 15:11:45 10/17/19 25 10/16/2024 urina lysis , dipst ick Urobilinogen .2 Not Available [facility] ([facility]) [address] [place], [address], 10/16/2024 15:11:45 10/17/19 25 10/16/2024 urina lysis , dipst ick Protein Negati ve Not Available [facility] ([facility]) [address] [place], [address], 10/16/2024 15:11:45 10/17/19 25 10/16/2024 urina lysis , dipst ick pH 6.0 Not Available [facility] ([facility]) [address] [place], [address], 10/16/2024 15:11:45 10/17/19 25 10/16/2024 urina lysis , dipst ick Blood Negati ve Not Available [facility] ([facility]) [address] [place], [address], 10/16/2024 15:11:45 10/17/19 25 10/16/2024 urina lysis , dipst ick Specific [place] 1.020 Not Available [facility] ( [facility]) [address] [place], [address], 10/16/2024 15:11:45 10/17/19 25 10/16/2024 urina lysis , dipst ick Ketone Negati ve Not Available [facility] ([facility]) [address] [place], [address], 10/16/2024 15:11:45 10/17/19 25 10/16/2024 urina lysis , dipst ick Bilirubin Small Not Available [facility] ([facility]) [address] [place], [address], 10/16/2024 15:11:45 10/17/19 25 10/16/2024 urina lysis , dipst ick Glucose Negati ve Not Available [facility] ([facility]) [address] [place], [address], 10/16/2024 15:11:45 10/17/19 25 10/16/2024 urina lysis , dipst ick Appearance Clear Not Available [facility] ([facility]) [address] [place], [address], 10/16/2024 15:11:45 10/17/19 25 10/16/2024 urina lysis , dipst ick Color Yellow Not Available [facility] ([facility]) [address] [place], [address], 10/16/2024 15:11:45 05/30/19 25 05/29/2024 MRI, lumba r spine , w/wo contr ast No observ ation record ed. [email or web address] [facility] [address], [place], [address], 06/04/2024 15:30:12 10/18/19 25 10/02/2024 pulmo nary funct ion test proce dure (PROC ) No observ ation record ed. [facility] [address] [facility] [address], [place], [address], 10/18/2024 14:18:13 Result Notes None recorded. Problems Name Problem SNOMED Code Status Onset Date Resolution Date Notes Provider Name and Address Organization Details Recorded Time COVID-19 120667473 Completed 202206/05/2024 COVID; Recorded 3 2:19PM by Meli Castano LPN, Office Visit; Promoted; acuity set as *; [facility] 16:32:44 Hypothyr oidism 37388854 Active 2022 HYPOTHYRO ID; Impressio n: the patient is not having any sx. continue current meds. Check TSH today.; Recorded 3 2:19PM by Meli Castano LPN, Office Visit; Promoted; acuity set as *; MAYTE pleaez [facility] 4 15:40:16 Chronic low back pain 788149965 Active 2024 MELI pelaez [facility] 5 15:55:33 Problem Notes None recorded. Procedures Surgical History Date Name Laterality Status Provider Name and Address Organization Details Recorded Time 4 bone density scan completed [facility] 12/14/2023 16:41:04 2 screening for malignant neoplasm of colon completed [facility] 11/11/2023 14:39:16 0 Back Surgery completed [facility] 11/04/2022 10:53:58 Imaging Results None recorded. Procedure Notes None recorded. Medical Equipment None Reported. Allergies Allergen ID Allergen Name Allergen Category Reaction Reaction Severity Criticality Documentation Date Start Date Code Code System Note Provider Name and Address Organization Details Recorded Time 36136 aspirin / caffeine medicatio n anaphylax is Not available Not available 10/16/2022 06878 0 RxNorm React ion: Anaph ylaxi s;Sta cathy she almos t when she took Aleve .; Comme nt: Recor ded 04/01 2:19P M by Meli gonsales, APPLICATION PROGRAMMER ANALYST, Offic e Visit ; Promo rochelle; Signi fican ce: Major ; Reaso n: Drug aller gy; ; Not Available [facility] 3 02:25:52 88076 pseudoeph edrine / triprolid ine medicatio n other Not available Not available 10/16/2022 82710 7 RxNorm React ion: Uncon sciou sness ; Comme nt: Recor ded 04/01 2:19P M by Meli gonsales, APPLICATION PROGRAMMER ANALYST, Offic e Visit ; Promo rochelle; Signi fichomero ce: Undef ined; Reaso n: Drug intol eranc e; ; Not Available [facility] 3 02:25:52 562 Benadryl medicatio n confusion severe low 06/15/202230986 7 RxNorm MELI pelaez [facility] 3 12:08:11 563 Aleve medicatio n anaphylax is severe high 06/15/2022 16325 1 RxNorm MELI pelaez [facility] 3 12:08:41 Medications Name Sig Start Date Stop Date Status Note LastModified by Organization Details LastModified Time Vitamin B-12 100 mcg tablet daily active 0; Recorded 03/17/20 22 8:45AM by Shayne Ybarra MD, Office Visit; Not Available Not Available Not Available lidocaine 4 % topical patch 1 patch for up to 12 hour daily 2024 active Not Available Not Available Not Avai lable azithromy claude 250 mg tablet 06/15 completed Not Available Not Available Not Available promethaz ine 12.5 mg tablet TAKE 1 TABLET BY MOUTH EVERY 6 HOURS NEEDED.- FRANSISCA PETTY 06/15 completed Not Available Not Available Not Available betametha sone acetate and sodium phos 6 mg/mL suspensio n for injection Take 1.5 mL every day by injectio n route for 1 day. 05/21 completed Not Available Not Available Not Available benzonata te 100 mg capsule TAKE 1 CAPSULE BY MOUTH EVERY 8 HOURS NEEDED 06/15 completed Not Available Not Available Not Available levothyro xine 50 mcg tablet TAKE 1 TABLET BY MOUTH EVERY DAY BEFORE MEALS 2024 active Not Available Not Available Not Avai lable omeprazol e 20 mg capsule,d elayed release TAKE 1 CAPSULE BY MOUTH EVERY DAY 09/29 completed Not Available Not Available Not Available methylpre dnisolone 4 mg tablets in a dose pack FOLLOW PACKAGE DIRECTIO NS.- FRANSISCA PETTY 06/15 completed Not Available Not Available Not Available albuterol sulfate HFA 90 mcg/actua tion aerosol inhaler INHALE 2 PUFFS EVERY 4 HOURS BY INHALATI ON ROUTE NEEDED, FOR SHORTNES S OF BREATH/E XERTION. active Not Available Not Available No t Available Vitamin D3 daily active 0; Recorded 03/17/20 22 8:45AM by Shayne Ybarra MD, Office Visit; Not Available Not Available Not Available SC Levothyro xine Sodium daily 11/04 completed Recorded 03/18/20 22 8:37AM by Anthony Prattic al Summary; Refill Quantity : 90; Tablet; Not Available Not Available Not Available Vitamin-C daily active 0; Recorded 03/17/20 22 8:45AM by Shayne Ybarra MD, Office Visit; Not Available Not Available Not Available Breztri Aerospher e 160 mcg-9mcg- 4.8mcg/ac tuation HFA aerosol inhaler Inhale 1 puff twice a day by inhalati on route. 10/26 completed sample given Not Available Not Available Not Available Vitals Date Recorded Body height Body mass index (BMI) Body weight Body temperature Oxygen saturation Oxygen saturation in Arterial blood by Pulse oximetry Heart rate Systolic And Diastolic Provider Name and Address Organization Details Last Updated DateTime 5 157.48 cm 24.7 kg/m2 26881.9 7 g 97.8 [degF] 99 % 99 % 80 /min 130/84 mm[Hg] [facility] 5 10:30:18 Date Recorded Body height Body mass index (BMI) Body weight Body temperature Oxygen saturation Oxygen saturation in Arterial blood by Pulse oximetry Heart rate Systolic And Diastolic Provider Name and Address Organization Details Last Updated DateTime 5 157.48 cm 26 kg/m2 18374.1 2 g 97.4 [degF] 99 % 99 % 69 /min 128/74 mm[Hg] [facility] 5 10:45:26 Date Recorded Body height Body mass index (BMI) Body weight Body temperature Oxygen saturation Oxygen saturation in Arterial blood by Pulse oximetry Heart rate Systolic And Diastolic Provider Name and Address Organization Details Last Updated DateTime 5 157.48 cm 24.9 kg/m2 90804.5 6 g 97.4 [degF] 94 % 94 % 77 /min 130/80 mm[Hg] [facility] 5 16:32:31 Date Recorded Body height Body mass index (BMI) Body weight Body temperature Oxygen saturation Oxygen saturation in Arterial blood by Pulse oximetry Heart rate Systolic And Diastolic Provider Name and Address Organization Details Last Updated DateTime 5 157.48 cm 25.2 kg/m2 36090.7 5 g 97.2 [degF] 99 % 99 % 73 /min 138/80 mm[Hg] MELI [facility] 5 15:52:23 Date Recorded Body height Body mass index (BMI) Body weight Body temperature Oxygen saturation Oxygen saturation in Arterial blood by Pulse oximetry Heart rate Systolic And Diastolic Provider Name and Address Organization Details Last Updated DateTime 5 157.48 cm 24.7 kg/m2 10920.9 7 g 98.2 [degF] 98 % 98 % 96 /min 115/65 mm[Hg] [facility] 15:09:43 Social History Question Answer Notes LastModified by Organizat [email or web address] Details LastModified Time Tobacco Smoking Status Never Smoker MELI LINO KYLEE pelaez [facility] 09/08/2022 14:56:15 What Was The Date Of Your Most Recent Tobacco Screening? 08/27/2024 [email or web address] Information not available 08/27/2024 Sex: Unknown Functional Status Question Answer Note LastModified by Organizat ion Details LastModified Time Do you use any illicit or recreational drugs? No [email or web address] Information not available 10/13/2023 What is your level of alcohol consumption? Occasional [email or web address] Information not available 10/13/2023 Mental Status None recorded. Family History Relationship Description Onset Age of this Age Resolved Age Notes LastModified by Organization Details LastModified Time Mother Diabetes mellitus Not available 04/21 11:56:58 Mother Congestive heart failure [email or web address] Not available 04/21 11:57:11 Mother Hypertensive disorder Hyperl ipidem ia [email or web address] Not available 05/03/2023 11:57:29 Medical History Condition Response Coronary Artery Disease N Other N Gout N Kidney Stones N Blood Diseases N Hyperthyroidism N Breast Cancer N Blood Transfusion N Depression N Hypothyroidism Y Lung Disease N COPD N Defects or Inherited Disease N Developmental or Behavioral Disorders N Breast Problem N Difficulty Swallowing N Anesthesia Complications N Meniere's disease N Anxiety Disorder N Muscle, Joint, or Bone Problems N Vision or Eye Problems N Arthritis N Polyps N Infertility N Cancer N Varicosities N Stroke N Endometriosis N Bladder or Kidney Problems N High Cholesterol N Liver Disease N Fibromyalgia N Headaches N Kidney Disease N Allergies/Hayfever N Heart Problems N Ear or Hearing Problems N Hospitalizations N Thyroid Problems N GI Problems N ADD/ADHD N Skin Problems N Eating Disorder N Anemia N Constipation N Mental Illness N Ovarian Cancer N Diabetes N Bedwetting N Seizures/Epilepsy N Tuberculosis N Eczema N Diverticulitis N Abuse/Domestic Violence N Asthma N Reflux/GERD N Hepatitis N Heart Disease N Pulmonary Embolism N Pre-Eclampsia N Hypertension N Chronic Ear Infections N Osteoporosis N Chicken Pox N Autism Spectrum Disorder (ASD) N Thrombophilias N Gynecological HistoryNo gynecological history recorded. Obstetrics History GPAL:G 2 P 2 0 0 2 Type Value Full Term 2 Living 2 Total 2 Immunizations Vaccine Type Date Status Note Provider Francisco galarza and Address Organization Details Recorded Time zoster recombinant 11/04/2022 completed DEVON KEATING PA-C [address] [place], [address], [facility] 11/16/2022 18:05:16 Past Encounters Encounter ID Performer Location Encounter Start Date Encounter Closed Date Diagnosis/Indication Diagnosis SNOMED-CT Code Diagnosis ICD10 Code Diagnosis IMO Codes Diagnosis Note [id number] Ana M Garza MD [facility] ([facility]) [address] [place] [id number] 06/15/2022 11:57:48 08/04/2022 16:03:28 Abdominal pain 05115524 R10.9 not assoc with n/v/d/c. postprandi al lower abd. unclear etiology, gradually resolving, trial of antacid since pt describes a gnawing feeling Hypothyroidism 31573067 E03.9 pt requests printed script to [employer] . [employer] 033673050 R42 also gradually improving, possibly due to reduced po intake with recent GI upset. (pt had hx of 3 mo vertigo in the past and went to PT) [id number] Ana M Garza MD [facility] ([facility]) [address] [place] [address] [phone] 09/08/2022 14:39:26 09/08/2022 16:55:33 Abdominal pain [id number] R10.9 Improved with omeprazole but she stopped it. Urinary incontinence 165 647213 R32 Pt prefers to not take medication s. She is very interested in pelvic PT. Irritable bowel syndrome [id number] K58.9 she eliminated meat a long time ago. she eliminated yogurt from her shakes. Blood pres sure above reference range [id number] R03.0 elevated in am. take it 4 times a day rtc in 2 weeks. Hypothyroidism 06144427 E03.9 would like script to [facility] [id number] Ana M Garza MD [facility] ([facility]) [address] [place] [address] [phone] 09/29/2022 11:13:16 09/29/2022 15:49:34 Blood pressure above reference range 70104881 R03.0 overall trend is wnl using home BP. no need for BP med at this time. [id number] DEVON KEATING PA-C [facility] ([facility]) [address] [place] [address] [phone] 11/04/2022 10:37:22 11/16/2022 09:11:56 Adult health examination 286550010 Z00.00 Administra tion of viral vaccine 28002214 Z23 Hypothyroidism 10456500 E03.9 [id number] DEVON KEATING PA-C [facility] ([facility]) [address] [place] [address] [phone] [id number] 12/31/2022 15:24:35 12/31/2022 18:51:12 Upper respiratory infection 01032876 J06.9 negative covid. monitor.Us e OTC Zyrtec for drainag.e [id number] MARY HUIZAR [facility] ([facility]) [address] [place] [address] [phone] 04/06/2023 08:26:12 04/06/2023 10:10:58 Dysuria 27299776 R30.0 Negative UA today. Will send for culture. Encouraged patient to continue pushing fluids. If symptoms worsen, return for further evaluation . Patient is agreeable to plan of care. [id number] Ana M Garza MD [facility] ([facility]) [address] [place] [address] [phone] 05/03/2023 11:51:35 05/03/2023 13:47:51 Hypothyroidism 99649832 E03.9 would like script [facility] Foot pain 57149759 M79.6 73 Lower abdominal pain 545 96738 R10.30 mid lower abdomen, had appy and hyst, no bowel changes. no nausea. consider related to her bladder prolapse though her pelviC PT has really helped and she still does her exercises but did not due them while [place] was [place]. she had different symptoms that responded to omeprazole about 9 months ago. I suggest she start taking the omeprazole again in case it helps. she has not been taking it. [id number] Ana M Garza MD [facility] ([facility]) [address] [place] [address] [phone] 05/09/2023 14:36:50 05/10/2023 08:48:56 [id number] Ana M Garza MD [facility] ([facility]) [address] [place] [address] [phone] 10/13/2023 15:23:03 10/13/2023 16:10:02 Reactive airway disease [id number] 06 J45.909 trial of breztri. f/u 2 weeks Impacted cerumen 8946734 6 H61.21 advised hydrogen perioxide 3 times a week. we can flush at her f/u visit if not resolved [id number] Ana M Garza MD [facility] ([facility]) [address] [place] [address] [phone] 10/27/2023 09:48:41 10/27/2023 16:01:32 Reactive airway disease 0300713221 06 J45.909 Pt. said she is better. was exposed to chemicals. likely does not need intermediate treatment. also her menthol inhaler worked better than the medication . 10/27/23 [id number] DEVON KEATING PA-C [facility] ([facility]) [address] [place] [address] [phone] 11/15/2023 09:53:16 11/15/2023 11:07:46 Adult health examination 148845054 Z00.00 she'll get her flu shot when back from [place] trip Hypothyroidism 97462305 E03.9 Osteopenia 000083802 M85 .80 [id number] Ana M Garza MD [facility] ([facility]) [address] [place] [address] [phone] 04/18/2024 10:16:50 04/18/2024 11:52:57 Urinary incontinence 699715605 R32 Pt prefers to not take medication s. She is very interested in pelvic PT. 04/18/24 Left side sciatica 91174 60153 82426 M54.32 failed PT. we will try steroid injection today. 04/18/24 [id number] Ana M Garza MD [facility] ([facility]) [address] [place] [address] [phone] 05/21/2024 10:35:40 05/21/2024 12:47:16 Left side sciatica [id number] 36430 M54.32 pt has been having phone trouble so they have not been able to schedule her MRI. we provided her with the number to call and schedule her MRI. she has a person coming to fix the phones 05/21/24 Mild dieta ry indigestion 523891133 K30 pretty much resolved now. 05/21/24 [id number] Ana M Garza MD [facility] ([facility]) [address] [place] [address] [phone] 06/05/2024 16:01:38 06/06/2024 10:41:13 Dizziness 044242886 R42 Improving. May have been a little bit of orthostati c hypotensio n. We will monitor for now. Patient seems to be drinking plenty of fluids the past 2 days. If symptoms persist consider adding OTC meclizine. 06/05/2024 [id number] Ana M Garza MD [facility] ([facility]) [address] [place] [address] [phone] 5 08/27/2024 15:46:28 08/28/2024 15:03:06 Chronic low back pain 327532086 M54.40 G89.29 57203696 pt does not want to do the spinal cord stimulator . she read about it and decided against it.I just want to find something to help with the pain.....I don't even know what is available. ....My daughter has given me a couple pain patches that she uses and I wore one and didn't hurt all day.the pain is getting better. 08/27/24 Asthma 722258537 J45.90 9 Pt. said she is better. was exposed to chemicals. likely does not need intermediate treatment. also her menthol inhaler worked better than the medication . 10/27/23 pt and daughter c/o sob. will get PFTs 08/27/24 [id number] Ana M Garza MD [facility] ([facility]) [address] [place] [address] [phone] 10/16/2024 14:44:57 10/22/2024 12:29:10 Increased frequency of urination 498680601 R35.0 266335 dip was clear, await culture... .suspect GI related symptoms. Gastroenteritis 04441466 K52.9 80302 push fluids, broth, bland diet as tolerated. Health Concerns Section Related Observation LastModified by Organization Detai ls LastModified Time None Recorded Concern Status LastModified by Organization Details LastModified Time None Recorded Advance Directives Directive None Recorded Payers Insurance Date Sequence Insurance Name Policy Number Policy Hansen Covered Member ID Hansen Member ID Guarantor Name 10/16/2024 [place] - [place] - [facility] (MEDICARE) Laure S Bergman [id number] Laure S Bergman 10/16/2024 1 [place] B[place]: [place] Laure S Bergman [id number] Laure S Bergman 10/16/2024 2 [place] [id number] Laure S Bergman [id number] Laure S Bergman 12/07/2024 2 [place]MEDICARE SUPPLE[place] [id number] Laure S Bergman [id number] Laure S Bergman 10/16/2024 1 [place]/A DVANTAGE - PPO) [id number] Laure S Bergman [id number] Laure S Bergman Notes Date Note Type Note Provider Name and Address Organization Details Recorded Time 04/18/2024 text/html 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 She did PT and it helped but never resolved. Started in Mar 2023, went to chiropractic, went for PT....it hasnt gone away and I got discouraged....just not going away.somedays are better when its really cold...its just getting old.walking 2-3 miles several times a week helped but foot problem prevents her from walking that much now....seeing podiatry but it hasnt helped her foot problem. in 2018 she had sudden onset of trouble with the right and had to have back surgery - done in [facility]. she doesnt want surgery but is afraid she might need it. been taking care of everyone else and traveling a lot out of [facility]. Ana M Garza MD [address] [place] [address], [phone], [facility] 04/18/2024 11:07:45 05/21/2024 text/html Pt has low abd pain that had lasted a week. She cannot eat beef or pork and she thinks her omelette was cooked in chavarria grease. I went out to breakfast and hurt all week long.some diarrhea, a lot of pain mostly....I take acidophlous and heating pad. Its better but I was wondering why it took so long....since then when I eat I feel so full afterwards - its not that I'm eating a lot..no nausea, no constipation, occasionally at night takes antacid medicine and gasx.gas is another thing i've been experiencing this week she has not been called about her MRI either. Ana M Garza MD [address] [place] [address], [phone], [facility] 05/21/2024 11:21:02 06/05/2024 text/html DizzinessReporte d by PatientHPIFor quality, patient reportsspinningandunst eadiness. For associated symptoms, patient reportsno double vision,no slurred speech,no blurred vision,no noise in the ears,no earache,no syncope,no loss of consciousness,no nausea, andno vomiting. not all the time, comes and goesstarted tuesday afternoongetting out of my car it happenedthen the next day I was sort of dizzy I have hx of vertigo so I'm good with standing up slowly getting out of bed.drank 70 something oz of water.today had 2 16 oz so far. Ana M Garza MD [address] [place] [address], [phone], [facility] 06/14/2024 14:33:24 08/27/2024 text/html pt wanted to discuss her backshe doesnt want spinal cord stimulatorshe cut out sugars and thinks that has helped, she read is decreases inflammation.she wonders if she really needs the second MRI if they are not going to do surgery or anything.... daughters have mentioned she sounds SOB on the phonept has noticed a little SOB....her was a 20+ year smoker, she never smoked. Ana M Garza MD [address] [place] [address], [phone], [facility] 08/27/2024 16:37:19 10/16/2024 text/html ROS as noted in the HPI her lower abdomen has been soreshe has been using a heating pad and that helps her lower abdomenyesterday had 5-6 bm's, usually only has 1. had only 1 so far today and it was normal.she has had more indigestion, vegetable soup upset her stomach and it usually doesnt. Ana M Garza MD [address] [place] [address], [phone], [facility] 10/16/2024 15:42:58 OBGyn Episode No OBEpisode recorded.
--- NOTE | 2025-01-26 20:29 | USR_ITS ---
PROCEDURE INFORMATION: Exam: US Duplex Left Lower Extremity Veins, Limited Exam date and time: 01/26/2025 10:17 PM Age: 89 years old Clinical indication: Pain; Leg, upper and leg, lower; Left; Additional info: Lle pain swelling TECHNIQUE: Imaging protocol: Real-time duplex ultrasound of the left extremity with 2-D mark scale, color Doppler flow and spectral waveform analysis including responses to compression and other maneuvers (when performed) with image documentation. Limited exam focused on the left lower extremity veins. COMPARISON: US bladder [id number] 05/09/2023 1:54 PM FINDINGS: Left deep veins: Unremarkable. The common femoral, femoral, proximal profunda femoral and popliteal veins are patent without thrombus. Normal Doppler waveforms. Normal compressibility and/or augmentation response. Superficial veins: Greater saphenous vein at the saphenofemoral junction is patent without thrombus. Soft tissues: Unremarkable. US/[place] [id number] IMPRESSION: No evidence of deep vein thrombosis.
[2025-01-26 21:54] VITALS: BP 175/87; O2SAT 96
--- NOTE | 2025-01-26 22:28 | W.ED.EXTPRO ---
Documented by User: WILLIAN Huddleston 01/26/25 22:39 HPI - Extremity Problem General: Chief complaint: Extremity Problem,Nontraumatic Stated complaint: Might have a blood clot in LT leg Time Seen by Provider: 01/26/25 21:35 Source: patient Mode of arrival: ambulatory Limitations: no limitations History of Present Illness: Patient is an 89-year-old female who presents the Emergency Department complaining of atraumatic left lower extremity pain beginning today. She reports a history of sciatica, states that this feels somewhat different and she is concerned that she might have a blood clot. Denies any trauma to the leg, no history of previous blood clots and she is not on a blood thinner. No prolonged travel or history of cancers reported. Pain reported to be 5/10, states it is worse with weightbearing but when she rests it feels much better. She does not report any swelling, redness, coolness, or skin color changes to her left lower extremity. Nontoxic-appearing at this time, vital stable. MD Complaint: extremity pain Onset (ago): hour(s) Pain Consistency: intermittent Location: left and lower extremity Associated symptoms: Deny chest pain, fever(s) or rash Related Data Home Medications ?Medication ?Instructions ?Recorded ?Confirmed Prevagen 1 tab PO DAILY 08/10/21 12/03/24 Vitamin B-12 1 tab PO DAILY 08/10/21 12/03/24 ascorbic acid (vitamin C) 500 mg 500 mg PO DAILY 08/10/21 12/03/24 tablet (Vitamin C) cholecalciferol (vitamin D3) 25 25 mcg PO DAILY 08/10/21 12/03/24 mcg (1,000 unit) tablet (Vitamin D3) levothyroxine 50 mcg tablet 50 mcg PO QAM 08/10/21 12/03/24 multivitamin 1 tab PO DAILY 08/10/21 12/03/24 ashwagandha root extract 500 mg 920 mg PO DAILY 10/12/21 12/03/24 capsule calcium 500 mg-vitamin D3 100 1 tab PO DAILY 10/12/21 12/03/24 unit-vitamin K 40 mcg chewable tablet chromium picolinate 200 mcg tablet 200 mcg PO DAILY 10/12/21 12/03/24 elderberry fruit 460 mg-elderberry 1 cap PO DAILY 10/12/21 12/03/24 flower 115 mg capsule folic acid 400 mcg tablet 0.4 mg PO DAILY 10/12/21 12/03/24 lysine 1,000 mg tablet 1,000 mg PO DAILY 10/12/21 12/03/24 Previous Rx's ?Medication ?Instructions ?Recorded promethazine 12.5 mg tablet 12.5 mg PO Q6H PRN nausea and 02/28/22 vomiting #10 tabs Allergies Allergy/AdvReac Type Severity Reaction Status Date / Time diphenhydramine (From Allergy ADR-Numbnes Verified 01/26/25 20:05 Benadryl) s naproxen (From Aleve) Allergy ALGY-Anaphy Verified 01/26/25 20:05 laxis Review of Systems General: Reports: 10 or more systems reviewed and unremarkable except in HPI and below Const: Denies: fever(s) or chills Card: Denies: chest pain Resp: Denies: dyspnea or productive cough GI: Denies: abdominal pain, nausea, vomiting or diarrhea : Denies: flank pain Musc: Reports: extremity pain (LLE); Denies: neck pain, back pain, extremity swelling, joint pain, joint swelling, joint redness, joint warmth, limited range of motion or muscle weakness Skin/Breast: Denies: rash Neuro: Denies: headache(s), numbness in extremities or weakness in extremities PFS ED PFSH: Medical History High cholesterol Family History Daughter Bleeding disorder Mother CAD (coronary artery disease) 40s Dementia Diabetes Stroke Family/Other Chronic kidney disease (CKD) Lung disease Denies family history of Clotting disorder Suicide Anesthesia complication Cancer Social History Smoking and tobacco/nicotine status: unknown if used tobacco/nicotine Alcohol intake: current Alcohol intake frequency: 0-2 Drinks per Day Alcohol type: wine Substance/Drug Use: never Physical Exam Const: COMMON NORMALS: no acute distress, patient oriented x3, no limitations, healthy appearing, alert and well nourished HENMT: COMMON NORMALS: normocephalic and atraumatic HEAD & SCALP: normocephalic and atraumatic Neck/C-Spine: COMMON NORMALS: full ROM, supple and no meningeal signs Resp: COMMON NORMALS: normal respiratory effort, No use of accessory muscles and clear to auscultation bilaterally AUSCULTATION: clear to auscultation bilaterally Cardio: COMMON NORMALS: regular rate and regular rhythm RATE: regular rate RHYTHM: regular rhythm Extremity: COMMON NORMALS: full ROM, capillary refill normal, no joint enlargement and no clubbing, cyanosis or edema NARRATIVE EXTREMITY EXAM: Multiple scattered varicosities to bilateral lower extremities. There is no redness or swelling to the left lower extremity. Negative reproducible tenderness to palpation. Full range of motion of the joints. Distal neurovascular exam is intact, as dorsalis pedis and posterior tibial pulses are palpable. No coolness or pallor. Neuro: COMMON NORMALS: patient oriented x3, moves all extremities, no focal motor deficits and no sensory deficits noted SENSORIUM/ORIENTATION: Yes alert MENINGEAL SIGNS: Yes no meningeal signs Skin: COMMON NORMALS: no rashes or lesions noted GENERAL SKIN EXAM: no rashes or lesions noted Course Vital Signs: Vital signs: Vital Signs Temperature 97.6 F 01/26/25 20:00 Pulse Rate 74 01/26/25 22:54 Respiratory Rate 16 01/26/25 22:54 Blood Pressure 169/96 01/26/25 22:54 Pulse Oximetry 96 01/26/25 22:54 Oxygen Delivery Me thod Room Air 01/26/25 21:54 MDM - Extremity (Nontraumatic) Medical Decision Making Patient presented for a left lower extremity pain she was concern of a blood clot. Does have a history of sciatica and though this felt somewhat similar there was something that felt different that she wanted to get evaluated. No direct trauma, no history of blood clots, no history of cancer, she is not on a blood thinner, no recent long travels. Neurovascular exam was intact, she had multiple scattered varicosities. The ultrasound of the left lower extremity did not reveal any acute DVT. Suspect this is benign etiology, could be superficial thrombophlebitis, or musculoskeletal in etiology. Ultimately this patient stable for discharge with routine outpatient follow-up and to return with any new or worsening. Lab Data Radiology Impressions Venous Duplex 01/26/25 20:29 IMPRESSION: No evidence of deep vein thrombosis. All radiology interpretation(s) finalized by discharge Discharge Plan Discharge Patient Disposition: Home Clinical Impression: Left leg pain Condition: Stable Prescriptions: No Action folic acid 400 mcg tablet 0.4 mg PO DAILY lysine 1,000 mg tablet 1,000 mg PO DAILY ashwagandha root extract 500 mg capsule 920 mg PO DAILY chromium picolinate 200 mcg tablet 200 mcg PO DAILY elderberry fruit and flower 460-115 mg capsule 1 cap PO DAILY calcium-vitamin D3-vitamin K 500-100-40 mg-unit-mcg tablet,chewable 1 tab PO DAILY promethazine 12.5 mg tablet 12.5 mg PO Q6H PRN (Reason: nausea and vomiting) Qty: 10 0RF Rx Instructions: 3 doses during day; last dose no later than 4 hr before bedtime multivitamin Tablet 1 tab PO DAILY Vitamin C 500 mg Tablet 500 mg PO DAILY levothyroxine 50 mcg Tablet 50 mcg PO QAM Vitamin D3 25 mcg (1,000 unit) Tablet 25 mcg PO DAILY Prevagen 1 tab PO DAILY Vitamin B-12 1 tab PO DAILY Discharge Orders: Discharge ED (Routine); Ordered 01/26/25 Ordered By: Nathaniel Park Referrals: Ana M Garza MD [Primary Care Provider, Family Practice] Patient Instructions: Patient Portal & Magen Instructions Activity Restrictions/Additional Instructions: Your ultrasound today was negative for any deep vein thrombosis of the leg. Your pain may be caused from superficial thrombophlebitis, which is superficial occlusion and does not require anticoagulant. Pain could also be musculoskeletal or related to your history of sciatica. Regardless please treat symptomatically at home with elevation of left lower extremity and wearing compressive socks. [id number] pain medications and please follow-up with your primary care provider for reevaluation. Return with any new or worsening. Print Language: Hong Konger Coding Level of Care Code ED Willow Analyst for Chg Fwd Documented by User: Hawk Mohan DO 01/27/25 03:40 HPI - Extremity Problem General: Chief complaint: Extremity Problem,Nontraumatic Stated complaint: Might have a blood clot in LT leg Time Seen by Provider: 01/26/25 21:35 Related Data Home Medications ?Medication ?Instructions ?Recorded ?Confirmed Prevagen 1 tab PO DAILY 08/10/21 12/03/24 Vitamin B-12 1 tab PO DAILY 08/10/21 12/03/24 ascorbic acid (vitamin C) 500 mg 500 mg PO DAILY 08/10/21 12/03/24 tablet (Vitamin C) cholecalciferol (vitamin D3) 25 25 mcg PO DAILY 08/10/21 12/03/24 mcg (1,000 unit) tablet (Vitamin D3) levothyroxine 50 mcg tablet 50 mcg PO QAM 08/10/21 12/03/24 multivitamin 1 tab PO DAILY 08/10/21 12/03/24 ashwagandha root extract 500 mg 920 mg PO DAILY 10/12/21 12/03/24 capsule calcium 500 mg-vitamin D3 100 1 tab PO DAILY 10/12/21 12/03/24 unit-vitamin K 40 mcg chewable tablet chromium picolinate 200 mcg tablet 200 mcg PO DAILY 10/12/21 12/03/24 elderberry fruit 460 mg-elderberry 1 cap PO DAILY 10/12/21 12/03/24 flower 115 mg capsule folic acid 400 mcg tablet 0.4 mg PO DAILY 10/12/21 12/03/24 lysine 1,000 mg tablet 1,000 mg PO DAILY 10/12/21 12/03/24 Previous Rx's ?Medication ?Instructions ?Recorded promethazine 12.5 mg tablet 12.5 mg PO Q6H PRN nausea and 02/28/22 vomiting #10 tabs Allergies Allergy/AdvReac Type Severity Reaction Status Date / Time diphenhydramine (From Allergy ADR-Numbnes Verified 01/26/25 20:05 Benadryl) s naproxen (From Aleve) Allergy ALGY-Anaphy Verified 01/26/25 20:05 laxis [facility] ED PFSH: Medical History High cholesterol Family History Daughter Bleeding disorder Mother CAD (coronary artery disease) 40s Dementia Diabetes Stroke Family/Other Chronic kidney disease (CKD) Lung disease Denies family history of Clotting disorder Suicide Anesthesia complication Cancer Social History Smoking and tobacco/nicotine status: unknown if used tobacco/nicotine Alcohol intake: current Alcohol intake frequency: 0-2 Drinks per Day Alcohol type: wine Substance/Drug Use: never Course Vital Signs: Vital signs: Vital Signs Temperature 97.6 F 01/26/25 20:00 Pulse Rate 74 01/26/25 22:54 Respiratory Rate 16 01/26/25 22:54 Blood Pressure 169/96 01/26/25 22:54 Pulse Oximetry 96 01/26/25 22:54 Oxygen Delivery Me thod Room Air 01/26/25 21:54 MDM - Extremity (Nontraumatic) Medical Decision Making Patient presented for a left lower extremity pain she was concern of a blood clot. Does have a history of sciatica and though this felt somewhat similar there was something that felt different that she wanted to get evaluated. No direct trauma, no history of blood clots, no history of cancer, she is not on a blood thinner, no recent long travels. Neurovascular exam was intact, she had multiple scattered varicosities. The ultrasound of the left lower extremity did not reveal any acute DVT. Suspect this is benign etiology, could be superficial thrombophlebitis, or musculoskeletal in etiology. Ultimately this patient stable for discharge with routine outpatient follow-up and to return with any new or worsening. Patient originally seen by Mr. Vivian PA-C. I agree with his history, evaluation, and management. Lab Data Radiology Impressions Venous Duplex 01/26/25 20:29 IMPRESSION: No evidence of deep vein thrombosis. Discharge Plan Discharge Patient Disposition: Home Clinical Impression: Left leg pain Condition: Stable Prescriptions: No Action folic acid 400 mcg tablet 0.4 mg PO DAILY lysine 1,000 mg tablet 1,000 mg PO DAILY ashwagandha root extract 500 mg capsule 920 mg PO DAILY chromium picolinate 200 mcg tablet 200 mcg PO DAILY elderberry fruit and flower 460-115 mg capsule 1 cap PO DAILY calcium-vitamin D3-vitamin K 500-100-40 mg-unit-mcg tablet,chewable 1 tab PO DAILY promethazine 12.5 mg tablet 12.5 mg PO Q6H PRN (Reason: nausea and vomiting) Qty: 10 0RF Rx Instructions: 3 doses during day; last dose no later than 4 hr before bedtime multivitamin Tablet 1 tab PO DAILY Vitamin C 500 mg Tablet 500 mg PO DAILY levothyroxine 50 mcg Tablet 50 mcg PO QAM Vitamin D3 25 mcg (1,000 unit) Tablet 25 mcg PO DAILY Prevagen 1 tab PO DAILY Vitamin B-12 1 tab PO DAILY Discharge Orders: Discharge ED (Routine); Ordered 01/26/25 Ordered By: Nathaniel Park Referrals: Ana M Garza MD [Primary Care Provider, Family Practice] Patient Instructions: Patient Portal & Magen Instructions Activity Restrictions/Additional Instructions: Your ultrasound today was negative for any deep vein thrombosis of the leg. Your pain may be caused from superficial thrombophlebitis, which is superficial occlusion and does not require anticoagulant. Pain could also be musculoskeletal or related to your history of sciatica. Regardless please treat symptomatically at home with elevation of left lower extremity and wearing compressive socks. [id number] pain medications and please follow-up with your primary care provider for reevaluation. Return with any new or worsening. Print Language: Hong [place]er Coding Level of Care Code ED Willow Analyst for Rakan Jimenez
[2025-01-26 22:47] VITALS: RESP 16; O2SAT 96
[2025-01-26] MEDS: morphine 4 mg/mL SDV 1 mL IM (22:47)
[2025-01-26 22:54] VITALS: BP 169/96; PULSE 74; RESP 16; O2SAT 96
== END 2025-01-26 22:56 | disposition home or self-care (01) ==
PROVIDERS: Emergency Provider Physician Assistant; PCP Family Medicine
DX: M79.605 Pain in left leg (principal)
CPT/HCPCS: 93971; 96372; 99284; J2270